=== PATIENT | female | born 1945 | race Two or more races ===

== ENCOUNTER 2017-10-08 12:30 | Inpatient (IN) | payer OTHER ==
[~2017-10-08] VITALS: Ht 152.4 cm; Wt 64.0 kg
[~2017-10-08 12:30] MED LIST: CRESTOR10 MG; SYNTHROID100 MCG; TOPROL XL50 M1
[2017-10-17] MEDS ORDERED: INTESTINEX680 M1 PO (11:28)
[2017-10-17] MEDS ORDERED: OXYC1TAB9 PO (11:28)
[2017-10-17] MEDS ORDERED: IMODIUM A-D2 MG PO (11:28)
== END 2017-10-17 13:16 | disposition home or self-care (01) | DRG 331 ==
LOC: O/R 10-14 05:44 → SURH 10-14 05:44 → RECOVERY 10-14 12:30 → SURH 10-14 12:30
PROVIDERS: Colon & Rectal Surgery
PROC: 0DTP4ZZ Resection of Rectum, Percutaneous Endoscopic Approach (ICD-10-PCS; 2017-10-14)
PROC: 07TC4ZZ Resection of Pelvis Lymphatic, Percutaneous Endoscopic Approach (ICD-10-PCS; 2017-10-14)
PROC: 0D1B4Z4 Bypass Ileum to Cutaneous, Percutaneous Endoscopic Approach (ICD-10-PCS; 2017-10-14)
PROC: 0DJD8ZZ Inspection of Lower Intestinal Tract, Via Natural or Artificial Opening Endoscopic (ICD-10-PCS; 2017-10-14)
PROC: 4A12X4Z Monitoring of Cardiac Electrical Activity, External Approach (ICD-10-PCS; 2017-10-14)
PROC: 0DTE4ZZ Resection of Large Intestine, Percutaneous Endoscopic Approach (ICD-10-PCS; principal; 2017-10-14 09:00)
DX: C20 Malignant neoplasm of rectum (principal); I11.9 Hypertensive heart disease without heart failure; E03.8 Other specified hypothyroidism; R59.0 Localized enlarged lymph nodes

== ENCOUNTER 2017-11-17 16:25 | Outpatient (CLI) | payer OTHER ==
[~2017-11-17 16:25] MED LIST changes: +IMODIUM A-D2 MG PO; +INTESTINEX680 M1 PO; +METROPOLOL; +OXYC1TAB9 PO
== END 2017-11-17 16:27 | disposition home or self-care (01) ==
LOC: LAB 16:25
DX: D68.8 Other specified coagulation defects (principal)

== ENCOUNTER 2017-11-18 05:53 | Day surgery (SDC) | payer OTHER | END 2017-11-18 17:56 | disposition home or self-care (01) | LOC: CIR.AMB 05:53 | DX: C20 Malignant neoplasm of rectum (principal) | CPT/HCPCS: 36561; C1751 ==

== ENCOUNTER 2018-08-16 14:31 | Inpatient (IN) | payer OTHER ==
[~2018-08-16] VITALS: Ht 154.9 cm; Wt 54.9 kg
== END 2018-09-03 12:28 | disposition home or self-care (01) | DRG 330 ==
LOC: O/R 08-31 05:45 → SURH 08-31 05:45
PROVIDERS: ADMIT Colon & Rectal Surgery
PROC: 0T9B70Z Drainage of Bladder with Drainage Device, Via Natural or Artificial Opening (ICD-10-PCS; 2018-08-31)
PROC: 0D1B4Z4 Bypass Ileum to Cutaneous, Percutaneous Endoscopic Approach (ICD-10-PCS; principal; 2018-08-31 15:15)
DX: C20 Malignant neoplasm of rectum (principal); K92.1 Melena; Z85.048 Personal history of other malignant neoplasm of rectum, rectosigmoid junction, and anus; R59.0 Localized enlarged lymph nodes; Z08 Encounter for follow-up examination after completed treatment for malignant neoplasm; E03.8 Other specified hypothyroidism; I11.9 Hypertensive heart disease without heart failure

== ENCOUNTER 2019-01-14 08:36 | Day surgery (SDC) | payer OTHER | END 2019-01-14 15:00 | disposition home or self-care (01) | LOC: AMB-ENDOS 08:36 | DX: C20 Malignant neoplasm of rectum (principal) ==

== ENCOUNTER 2019-10-13 12:38 | Emergency (ER) | payer OTHER ==
[~2019-10-13] VITALS: Ht 154.9 cm; Wt 59.0 kg
[~2019-10-13 12:38] MED LIST changes: -TOPROL XL50 M1; +TOPROL XL50 M1 PO
[2019-10-13] MEDS ORDERED: SYNTHROID112 MCG PO (12:45)
== END 2019-10-13 20:22 | disposition home or self-care (01) ==
LOC: ER 12:38
DX: N82.3 Fistula of vagina to large intestine (principal); N39.0 Urinary tract infection, site not specified

== ENCOUNTER 2019-10-14 12:47 | Inpatient (IN) | payer OTHER ==
[~2019-10-14] VITALS: Ht 154.9 cm; Wt 59.0 kg
[~2019-10-14 12:47] MED LIST changes: +SYNTHROID112 MCG PO
--- NOTE | 2019-10-14 12:57 | NUR ---
SE RECIBE PTE. FEMENINA ACOMPANADA DE FAMILIARES PTE. REFIERE ABDOMEN DISTENDIDO Y DEBILIDAD TEMBLORES NO RASMUSSEN EVACUADO DESDE MECHELLE. REFIERE QUE TENER FISTULA Y MECHELLE LE REALIZARON UN CT.SCAN CON CONTRASTE Y SONOGTRAMA PELVICO.
--- NOTE | 2019-10-14 13:47 | NUR ---
EVALUADA POR EN TURNO QUIEN COLOCA ORDEN MEDICA. MS.OLIVER ORIENTA PACIENTE Y FAMILIAR SOBRE TRATAMIENTO ORDENADO POR . AMBAS REFIEREN COMPRENDER. COLECTA MUESTRAS DE LABORATORIOS,ROTULA Y ENVIA PARA ANALISIS. PACIENTE TOLERA PROCEDIMIENTOS ORDENADOS.
--- NOTE | 2019-10-14 15:29 | NUR ---
PTE ALERTA Y ORIENTADA X 3 ESFERAS EN COMPANIA DE FAMILIAR,EN LIVIA CON BARANDAS ELEVADAS,AREA DE VENOPUNCION PATENTE Y MANUELITO DE EDEMA CON FLUIDOS DE MANTENIMIENTO BAJANDO SIN DIFICULTAD,SIENDO EVALUADA POR DR RATLIFF AL MOMENTO.
[2019-10-18] MEDS ORDERED: FUSION PLUS CA1 EACH PO (09:40)
[2019-10-18] MEDS ORDERED: BACTRIM DS TAB1 EACH (09:41)
[2019-10-18] MEDS ORDERED: TOPROL XL25 M1 PO (09:41)
[2019-10-18] MEDS ORDERED: ROSUVASTATIN CA10 MG PO (09:42)
== END 2019-10-31 17:18 | disposition home or self-care (01) | DRG 329 ==
LOC: ER 12:47 → SURH 16:34
PROVIDERS: ADMIT Internal Medicine
PROC: 0DTP4ZZ Resection of Rectum, Percutaneous Endoscopic Approach (ICD-10-PCS; principal; 2019-10-17)
PROC: 0D1M4Z4 Bypass Descending Colon to Cutaneous, Percutaneous Endoscopic Approach (ICD-10-PCS; 2019-10-17)
PROC: 0DJD8ZZ Inspection of Lower Intestinal Tract, Via Natural or Artificial Opening Endoscopic (ICD-10-PCS; 2019-10-17)
PROC: BW21YZZ Computerized Tomography (CT Scan) of Abdomen and Pelvis using Other Contrast (ICD-10-PCS; 2019-10-19)
DX: N82.3 Fistula of vagina to large intestine (principal); K65.1 Peritoneal abscess; N39.0 Urinary tract infection, site not specified; I10 Essential (primary) hypertension; E03.8 Other specified hypothyroidism; K63.89 Other specified diseases of intestine; Z85.038 Personal history of other malignant neoplasm of large intestine

== ENCOUNTER 2019-11-05 19:03 | Inpatient (IN) | payer OTHER ==
[~2019-11-05] VITALS: Ht 2.5 cm; Wt 5.0 kg
[~2019-11-05 19:03] MED LIST changes: +BACTRIM DS TAB1 EACH; +FUSION PLUS CA1 EACH PO; +ROSUVASTATIN CA10 MG PO; +TOPROL XL25 M1 PO
== END 2019-11-18 18:53 | disposition home or self-care (01) | DRG 758 ==
LOC: ER 19:03 → SURG 11-06 11:29 → SURH 11-06 11:29 → SEC-K 11-06 11:29 → SURG 11-06 12:14 → SURH 11-06 12:59
PROVIDERS: ADMIT Internal Medicine
PROC: BW21ZZZ Computerized Tomography (CT Scan) of Abdomen and Pelvis (ICD-10-PCS; principal; 2019-11-06)
PROC: 0W9J30Z Drainage of Pelvic Cavity with Drainage Device, Percutaneous Approach (ICD-10-PCS; 2019-11-12)
PROC: BW2GZZZ Computerized Tomography (CT Scan) of Pelvic Region (ICD-10-PCS; 2019-11-12)
DX: N73.8 Other specified female pelvic inflammatory diseases (principal); N39.0 Urinary tract infection, site not specified; N82.3 Fistula of vagina to large intestine; E03.8 Other specified hypothyroidism; Z93.3 Colostomy status; K52.9 Noninfective gastroenteritis and colitis, unspecified; B96.20 Unspecified Escherichia coli [E. coli] as the cause of diseases classified elsewhere

== ENCOUNTER 2020-01-25 08:00 | Outpatient (CLI) | payer OTHER | END 2020-01-25 08:13 | disposition home or self-care (01) | LOC: NUCLEAR 08:00 | PROVIDERS: ATTEND Internal Medicine | DX: C20 Malignant neoplasm of rectum (principal); N82.4 Other female intestinal-genital tract fistulae | CPT/HCPCS: 78815; A9552 ==

== ENCOUNTER 2021-06-14 06:39 | Day surgery (SDC) | payer OTHER | END 2021-06-14 11:00 | disposition home or self-care (01) | LOC: AMB-ENDOS 06:39 | PROVIDERS: ATTEND Colon & Rectal Surgery | DX: D12.4 Benign neoplasm of descending colon (principal); Z20.822 Contact with and (suspected) exposure to COVID-19 ==

== ENCOUNTER 2021-12-03 11:54 | Outpatient (CLI) | payer OTHER ==
[~2021-12-03 11:54] MED LIST changes: +SYNTHROID88 MCG PO
== END 2021-12-03 11:58 | disposition home or self-care (01) ==
LOC: LAB 11:54
PROVIDERS: ATTEND Colon & Rectal Surgery
DX: Z20.822 Contact with and (suspected) exposure to COVID-19 (principal)

== ENCOUNTER 2021-12-04 05:48 | Day surgery (SDC) | payer OTHER ==
[~2021-12-04] VITALS: Ht 157.5 cm; Wt 68.9 kg
== END 2021-12-04 14:05 | disposition home or self-care (01) ==
LOC: CIR.AMB 05:48
PROVIDERS: ATTEND Colon & Rectal Surgery
DX: C20 Malignant neoplasm of rectum (principal); Z85.048 Personal history of other malignant neoplasm of rectum, rectosigmoid junction, and anus; R59.0 Localized enlarged lymph nodes; Z20.822 Contact with and (suspected) exposure to COVID-19; E03.9 Hypothyroidism, unspecified
CPT/HCPCS: 36561; C1788

== ENCOUNTER 2022-07-14 13:19 | Emergency (ER) | payer OTHER ==
[~2022-07-14] VITALS: Ht 154.9 cm; Wt 68.9 kg
[2022-07-14] MEDS ORDERED: TUSNEL LIQUID178 ML PO (20:24)
[2022-07-14] MEDS ORDERED: ZITHROMAX500 MG PO (20:24)
[2022-07-14] MEDS ORDERED: MEDROLPACK PO (20:25)
[2022-07-14] MEDS ORDERED: DOLOGEN CAPLET1 EACH PO (20:25)
[2022-07-14] MEDS ORDERED: PROAIR RESPICL90 MCG IH (20:25)
== END 2022-07-14 20:36 | disposition home or self-care (01) ==
LOC: ER 13:19
DX: U07.1 COVID-19 (principal)

== ENCOUNTER 2023-09-09 12:47 | Inpatient (IN) | payer OTHER ==
[~2023-09-09] VITALS: Ht 154.9 cm; Wt 68.0 kg
[~2023-09-09 12:47] MED LIST changes: +DOLOGEN CAPLET1 EACH PO; +MEDROLPACK PO; +PROAIR RESPICL90 MCG IH; +TUSNEL LIQUID178 ML PO; +ZITHROMAX500 MG PO
[2023-09-09] MEDS ORDERED: CANDESARTAN CILE8 MG PO (13:05)
--- NOTE | 2023-09-09 13:12 | NUR ---
PACIENTE ALERTA Y ORIENTADA X3, REFIERE TENER DOLOR ABDOMINAL Y VARIOS VOMITOS. SE MONITOREAN VS Y SE UBICA
[2023-09-09] MEDS ORDERED: ONDANSETRON HCL 2 MG/ML VIAL IV ONE (14:30)
[2023-09-09] MEDS ORDERED: 0.9 % SODIUM CHLORIDE 500 ML IV ONE (14:30)
[2023-09-09] MEDS ORDERED: FAMOTIDINE/PF 20 MG/2 ML VIAL IV ONE (14:30)
--- NOTE | 2023-09-09 15:34 | NUR ---
PTE FEMENINA EVALUADA POR . RN BIGGS ORIENTA PTE SOBRE ORDENES DE TX REFIERE COMPRENDER. COLECTA MUESTRAS DE LABORATORIOS Y CANALZIA VENA BAJO MEDIDAS ASEPTICAS. ADMINISTRA MEDICAMENTOS, BAJO MEDIDAS ASEPTICAS. NOTIFICA A SONOGRAFISTA PREA ESTUDIO Y A RADIOLOGIA.
[2023-09-09 16:20] LABS: HEMATOCRIT 34.8 % (36.0-45.00); HEMOGLOBIN 11.7 g/dL (12.0-15.00); MEAN CELL VOLUME 86.8 fL (80.00-100.00); MEAN CORPUSCULAR HEMOGLOBIN 29.1 pg (27.00-32.0); MEAN CORPUSCULAR HGB CONC 33.5 g/dl (32.0-36.0); PLATELET COUNT 171 K/uL (150-450); RED BLOOD COUNT 4.02 M/uL (4.00-6.00); RED CELL DISTRIBUTION WIDTH 15.2 % (11.5-14.5)
[2023-09-09 16:27] LABS: INR 1.16; PARTIAL THROMBOPLASTIN TIME 34.6 SECONDS (22.0-34.0)
[2023-09-09 16:32] LABS: ALBUMIN 3.1 gm/dL (3.4-5.0); BILIRUBIN TOTAL 1.61 mg/dL (0.3-1.2); BILIRUBIN,CONJUGATED 0.63 mg/dL (0.0-0.2); BILIRUBIN,UNCONJUGATED 0.98 mg/dL (0.0-0.6); CALCIUM 8.7 mg/dL (8.5-10.1); CREATININE SERUM 0.83 mg/dL (0.55-1.02); GFR 66.31; GLOBULINA 3.5 G/DL (2.4-3.5); POTASSIUM 3.85 mEq/L (3.5-5.1); TOTAL PROTEIN 6.6 gm/dL (6.4-8.2)
[2023-09-09] MEDS ORDERED: PIPERACILLIN/TAZOBACTAM SODIUM 3.375 GM VIAL IV ONE (18:00)
[2023-09-09 19:05] LABS: URINE APPEARANCE Cloudy; URINE BILIRRUBIN Small (NEGATIVE); URINE BLOOD Trace; URINE COLOR Dark Yellow; URINE GLUCOSE Negative (NEGATIVE); URINE LEUKOCYTE Moderate; URINE NITRATE Negative; URINE PROTEIN 30 (NEGATIVE)
[2023-09-09 19:08] LABS: URINE BACTERIA 2116.7 uL (0.0-1933); URINE EPITHELIAL CELLS 51.1 uL (0.0-38.8); URINE RBC 43.5 uL (0.0-20.8); URINE WBC 188.1 uL (0.0-23.2)
[2023-09-09 19:47] LABS: URINE MUCUS MODERATE
[2023-09-09] MEDS ORDERED: ACETAMINOPHEN 500 MG GEL..CAP PO PRN (22:00)
[2023-09-09] MEDS ORDERED: MEPERIDINE HCL/PF 25 MG/ML VIAL IM ONE (22:00)
[2023-09-09] MEDS ORDERED: ONDANSETRON HCL 4 MG in 0.9 % SODIUM CHLORIDE 50 ML IV PRN (22:00)
[2023-09-09] MEDS ORDERED: MEPERIDINE HCL/PF 25 MG/ML VIAL IM PRN (22:00)
[2023-09-09] MEDS ORDERED: 0.9 % SODIUM CHLORIDE 1,000 ML IV SCH (22:00)
[2023-09-09] MEDS ORDERED: PROMETHAZINE HCL 25 MG/ML AMPUL IM ONE (22:00)
[2023-09-09] MEDS ORDERED: DEXTROSE 50 % IN WATER 0.5 G/ML DISP.SYRIN IV PRN (22:15)
[2023-09-09] MEDS ORDERED: INSULIN LISPRO 1,000 UNIT/10 ML UNITS SUBCUTANEO PRN (22:15)
[2023-09-10] MEDS ORDERED: PIPERACILLIN/TAZOBACTAM SODIUM 3.375 GM in DEXTROSE 5 % IN WATER 100 ML IV SCH
[2023-09-10] MEDS ORDERED: LEVOTHYROXINE SODIUM 88 MCG TABLET PO SCH (06:00)
[2023-09-10] MEDS ORDERED: FAMOTIDINE/PF 20 MG/2 ML VIAL ONE (08:39)
[2023-09-10] MEDS ORDERED: FAMOTIDINE/PF 20 MG in 0.9 % SODIUM CHLORIDE 8 ML IV PUSH SCH (09:00)
[2023-09-10] MEDS ORDERED: METOPROLOL SUCCINATE 50 MG TAB.SR.24H PO SCH (09:00)
[2023-09-10] MEDS ORDERED: CANDESARTAN CILEXETIL 8 MG TAB PO SCH (09:00)
[2023-09-10] MEDS ORDERED: AA 4.25%/CAL/LYTES/DEXT 5% 1,000 ML PERIFERAL SCH (17:00)
[2023-09-10 17:55] LABS: CALCIUM 8.5 mg/dL (8.5-10.1); CHOL HDL RATIO 2.5 (0-5.0); CREATININE SERUM 0.85 mg/dL (0.55-1.02); GFR 64.52; POTASSIUM 3.57 mEq/L (3.5-5.1)
[2023-09-10] MEDS ORDERED: 0.9 % SODIUM CHLORIDE 10 ML VIAL IJ ONE (21:23)
[2023-09-11] MEDS ORDERED: FAMOTIDINE/PF 20 MG/2 ML VIAL ONE ×2 (06:37→06:38)
[2023-09-11 07:50] LABS: HEMATOCRIT 30.6 % (36.0-45.00); HEMOGLOBIN 10.4 g/dL (12.0-15.00); MEAN CELL VOLUME 85.7 fL (80.00-100.00); MEAN CORPUSCULAR HEMOGLOBIN 29.2 pg (27.00-32.0); PLATELET COUNT 171 K/uL (150-450); RED BLOOD COUNT 3.57 M/uL (4.00-6.00); RED CELL DISTRIBUTION WIDTH 14.9 % (11.5-14.5)
[2023-09-11 08:31] LABS: ALBUMIN 2.5 gm/dL (3.4-5.0); BILIRUBIN TOTAL 1.81 mg/dL (0.3-1.2); BILIRUBIN,CONJUGATED 0.98 mg/dL (0.0-0.2); BILIRUBIN,UNCONJUGATED 0.83 mg/dL (0.0-0.6); CALCIUM 8.1 mg/dL (8.5-10.1); CREATININE SERUM 0.82 mg/dL (0.55-1.02); GFR 67.25; GLOBULINA 3.1 G/DL (2.4-3.5); MAGNESIUM 2.2 mg/dL (1.8-2.4); POTASSIUM 3.49 mEq/L (3.5-5.1); TOTAL PROTEIN 5.6 gm/dL (6.4-8.2)
[2023-09-11 08:48] LABS: C-REACTIVE PROTEIN 24.4 MG/DL (0.00-0.29)
[2023-09-11] MEDS ORDERED: ENOXAPARIN SODIUM 40 MG/0.4 ML SYRINGE SUBCUTANEO SCH (10:53)
[2023-09-11 11:50] LABS: ABG PH 7.464 (7.35-7.45); ABG PO2 87.4 mmHg (80-100); ABG pCO2 32.2 mmHg (35-45); BASE EXCESS -0.3 mmol/l; BICARBONATE 22.6 mmol/l (23-25); SaO2 97.2 %; Tco2 23.6 mmol/l
[2023-09-11 11:51] LABS: allen test SATISFACTORY; o2 21 %; puncture site RADIAL RIGHT
[2023-09-11] MEDS ORDERED: PIPERACILLIN/TAZOBACTAM SODIUM 3.375 GM VIAL IV ONE (16:22)
[2023-09-12] MEDS ORDERED: FAMOTIDINE/PF 20 MG/2 ML VIAL ONE (07:23)
[2023-09-13] MEDS ORDERED: DEXTROSE 5%-WATER 100ML IV.SOLN ONE (21:40)
[2023-09-14 07:56] LABS: HEMATOCRIT 32.5 % (36.0-45.00); HEMOGLOBIN 10.9 g/dL (12.0-15.00); MEAN CELL VOLUME 85.1 fL (80.00-100.00); MEAN CORPUSCULAR HEMOGLOBIN 28.7 pg (27.00-32.0); MEAN CORPUSCULAR HGB CONC 33.7 g/dl (32.0-36.0); PLATELET COUNT 236 K/uL (150-450); RED BLOOD COUNT 3.82 M/uL (4.00-6.00); RED CELL DISTRIBUTION WIDTH 15.2 % (11.5-14.5)
[2023-09-14] MEDS ORDERED: PIPERACILLIN/TAZOBACTAM SODIUM 3.375 GM VIAL IV ONE (08:58)
== END 2023-09-14 22:06 | disposition home or self-care (01) | DRG 445 ==
LOC: ER 12:48 → MEDI 22:06 → SURH 22:06 → MEDJ 22:29 → SURH 23:31
PROVIDERS: General Practice; Internal Medicine Infectious Disease; Nurse Practitioner Family; ADMIT Internal Medicine; ATTEND Internal Medicine
PROC: BW40ZZZ Ultrasonography of Abdomen (ICD-10-PCS; principal; 2023-09-09)
PROC: BW24ZZZ Computerized Tomography (CT Scan) of Chest and Abdomen (ICD-10-PCS; 2023-09-09)
PROC: B24BZZZ Ultrasonography of Heart with Aorta (ICD-10-PCS; 2023-09-11)
PROC: 02HV33Z Insertion of Infusion Device into Superior Vena Cava, Percutaneous Approach (ICD-10-PCS; 2023-09-12)
DX: K80.12 Calculus of gallbladder with acute and chronic cholecystitis without obstruction (principal); C20 Malignant neoplasm of rectum; J90 Pleural effusion, not elsewhere classified; E03.9 Hypothyroidism, unspecified; I10 Essential (primary) hypertension